=== PATIENT | female | born 1990 | race Caucasian/White ===

== ENCOUNTER 2018-03-28 11:55 | Emergency (ER) | payer OTHER ==
[2018-03-28 12:03] VITALS: BP 130/75; PULSE 102; TEMP 98.1; BMI 24.3
--- NOTE | 2018-03-28 12:38 | PDOC ---
History of Present Illness - General Chief Complaint: Abscess Boil Stated Complaint: ABCESS Time Seen by Provider: 03/28/18 12:02 - History of Present Illness Initial Comments: 27-year-old female presents for evaluation of an abscess on her left arm which is been there for 2 days. She has no other associated symptoms. 03/28/18 12:33 Past History - Past Medical History Allergies/Adverse Reactions: Allergies Allergy/AdvReac Type Severity Reaction Status Date / Time No Known Allergies Allergy Verified 03/28/18 12:00 Home Medications: Ambulatory Orders Cephalexin [Keflex] 500 mg PO QID #40 capsule 03/28/18 Sulfamethoxazole/Trimethoprim [Bactrim Ds -] 1 tab PO BID #14 tablet 03/28/18 COPD: No DVT: No Dementia: No - Immunization History Immunization Up to Date: Yes - Suicide/Smoking/Psychosocial Hx Smoking History: Never smoked Number of Cigarettes Smoked Daily: 10 Information on smoking cessation initiated: No Hx Alcohol Use: No Drug/Substance Use Hx: No Substance Use Type: None Review of Systems - Review of Systems Integumentary: Yes: See HPI, Lesions All Other Systems: Reviewed and Negative *Physical Exam - Vital Signs Last Vital Signs Temp Pulse Resp BP Pulse Ox 98.1 F 102 H 16 130/75 100 03/28/18 12:00 03/28/18 12:00 03/28/18 12:00 03/28/18 12:00 03/28/18 12:00 - Physical Exam Comments: There is about a half centimeter circumferential erythemic area with a cord out eschar without drainage no fluctuance normal surrounding skin color and temperature mild induration around the center of the lesion. Multiple track fleming up and down the arm. No gross sensorimotor deficits. 03/28/18 12:33 Medical Decision Making - Medical Decision Making 27-year-old female suspected IV drug user I will place her on Bactrim and Keflex and have her follow-up with general surgery for further evaluation and treatment options. 03/28/18 12:34 *DC/Admit/Observation/Transfer Diagnosis at time of Disposition: Cellulitis and abscess of upper arm and forearm - Discharge Dispostion Disposition: HOME Condition at time of disposition: Stable Decision to Admit order: No - Prescriptions Prescriptions: Cephalexin [Keflex] 500 mg PO QID #40 capsule Sulfamethoxazole/Trimethoprim [Bactrim Ds -] 1 tab PO BID #14 tablet - Referrals Referrals: ON STAFF,NOT [Primary Care Provider] - Keith Doherty MD [Staff Physician] - - Patient Instructions Printed Discharge Instructions: DI for Skin Abscess Additional Instructions: Return to the emergency room should symptoms worsen or go unresolved. Please take the antibiotics as directed. General surgery in 1-2 days for further evaluation and treatment options. Warm compresses 5-6 times a day over the area will also be helpful. He may take Tylenol and Motrin for pain as directed. - Post Discharge Activity
== END 2018-03-28 12:49 | disposition home or self-care (01) ==
LOC: JERFT 11:55
DX: L03.114 Cellulitis of left upper limb (principal)
CPT/HCPCS: 99281-25

== ENCOUNTER 2022-10-06 20:32 | Emergency (ER) | payer OTHER ==
[2022-10-06 20:39] VITALS: RESP 16; BMI 17.2
[2022-10-06] MEDS ORDERED: cloNIDine HCL 0.1 MG TABLET PO ONE (21:30)
[2022-10-06] MEDS ORDERED: ONDANSETRON *ODT* 4 MG TABLET SL ONE (21:38)
[2022-10-06] MEDS ORDERED: ONDANSETRON *ODT* 4 MG TABLET ONE (21:40)
[2022-10-06] MEDS ORDERED: cloNIDine HCL 0.1 MG TABLET ONE (21:40)
[2022-10-06 21:49] LABS: BASO % 0.3 % (0-2.0); EOS % 0.7 % (0-4.5); HEMATOCRIT 34.1 % (32.4-45.2); HEMOGLOBIN 11.2 GM/dL (10.7-15.3); LYMPH % 39.8 % (8-40); MCH 22.4 pg (25.7-33.7); MCHC 32.8 g/dl (32.0-36.0); MEAN CELL VOLUME 68.3 fl (80-96); MEAN PLT VOLUME 7.5 fl (7.5-11.1); MONO % 7.4 % (3.8-10.2); NEUT % 51.8 % (42.8-82.8); PLATELET COUNT 243 10^3/uL (134-434); RBC 4.99 M/mm3 (3.60-5.2); RDW 16.6 % (11.6-15.6); WHITE BLOOD COUNT 5.4 K/mm3 (4.0-10.0)
[2022-10-06 22:01] LABS: ALBUMIN 3.5 g/dl (3.4-5.0); BLOOD UREA NITROGEN 14.1 mg/dL (7-18); CALCIUM 9.4 mg/dL (8.5-10.1)
[2022-10-06 22:03] LABS: CREATININE 0.7 mg/dL (0.55-1.3)
[2022-10-06 22:05] LABS: BILIRUBIN,TOTAL 0.3 mg/dL (0.2-1); TOT PROT 8.1 g/dl (6.4-8.2)
[2022-10-06] MEDS ORDERED: CLINDAMYCIN HCL 300 MG CAPSULE PO ONE (23:53)
[2022-10-06] MEDS ORDERED: CLINDAMYCIN HCL 150 MG CAPSULE (FP) ONE (23:55)
[2022-10-06 23:56] VITALS: BP 113/69; PULSE 67; TEMP 98.2
== END 2022-10-07 00:10 | disposition short-term general hospital (02) ==
LOC: JER 20:32
DX: S60.511A Abrasion of right hand, initial encounter (principal); S60.512A Abrasion of left hand, initial encounter; F11.23 Opioid dependence with withdrawal; L02.91 Cutaneous abscess, unspecified; Y99.9 Unspecified external cause status
CPT/HCPCS: 36415; 73130-TC-LT-FY; 73130-TC-RT-FY; 80053; 84703; 85025; 93005; 93010; 99285-25; Q0162

== ENCOUNTER 2022-10-08 09:08 | Inpatient (IN) | payer OTHER ==
[2022-10-08 09:24] VITALS: BMI 18.4
[2022-10-08] MEDS ORDERED: P-EPHED 60MG/TRIPROLIDI 2.5MG TABLET PO PRN (09:46)
[2022-10-08] MEDS ORDERED: ACETAMINOPHEN 325 MG TABLET (FP) PO PRN (09:46)
[2022-10-08] MEDS ORDERED: guaiFENesin 600 MG TABLET.ER (FP) PO PRN (09:46)
[2022-10-08] MEDS ORDERED: IBUPROFEN 600 MG TABLET (FP) PO PRN (09:46)
[2022-10-08] MEDS ORDERED: BENZOCAINE/MENTHOL (CHLORASEPTIC ) LOZENGE MM PRN (09:46)
[2022-10-08] MEDS ORDERED: LOPERAMIDE HCL 2 MG CAPSULE PO PRN (09:46)
[2022-10-08] MEDS ORDERED: IBUPROFEN 400 MG TABLET (FP) PO PRN (09:46)
[2022-10-08] MEDS ORDERED: POLYETHYLENE GLYCOL (HEALTHYLAX) 3350 17 GM PACKET PO PRN (09:46)
[2022-10-08] MEDS ORDERED: NALOXONE HCL (KLOXXADO) 8 MG SPRAY NS PRN (09:46)
[2022-10-08] MEDS ORDERED: NALOXONE HCL 0.4 MG/ML VIAL IM PRN (09:46)
[2022-10-08] MEDS ORDERED: MAGNESIUM HYDROX 2400MG/30ML ORAL SUSPENSION 30 ML CUP PO PRN (09:46)
[2022-10-08] MEDS ORDERED: MAG HYDROX/AL HYDROX/SIMETH 30 ML UNIT-DOSE CUP PO PRN (09:46)
[2022-10-08] MEDS ORDERED: MELATONIN 5 MG TABLETS PO PRN (09:46)
[2022-10-08] MEDS ORDERED: BENZONATATE 200 MG CAPSULE PO PRN (09:46)
[2022-10-08] MEDS ORDERED: PRENATAL VITAMINS W/ FOLIC ACID TABLET (FP) PO ONE (10:55)
[2022-10-08] MEDS ORDERED: hydrOXYzine PAMOATE 25 MG CAPSULE (FP) PO ONE (10:55)
[2022-10-08] MEDS: hydrOXYzine PAMOATE 25 MG CAPSULE (FP) PO PRN ×2 (10:58→20:56)
[2022-10-08] MEDS: PRENATAL VITAMINS W/ FOLIC ACID TABLET (FP) PO SCH (10:59)
[2022-10-08] MEDS ORDERED: TUBERCULIN PPD 5 TU/0.1ML VIAL ID ONE (14:24)
[2022-10-08] MEDS: CLINDAMYCIN HCL 150 MG CAPSULE (FP) PO SCH ×2 (15:21→17:47)
[2022-10-08] MEDS: ESCITALOPRAM OXALATE 10 MG TABLET PO SCH (15:21)
[2022-10-08] MEDS: NICOTINE POLACRILEX 2 MG GUM BUC PRN ×2 (15:30→18:46)
[2022-10-08] MEDS ORDERED: SUVOREXANT 10 MG TABLET PO PRN (22:00)
[2022-10-08] MEDS ORDERED: THIAMINE HCL 100 MG TABLET (FP) PO SCH (22:00)
[2022-10-08] MEDS: METHOCARBAMOL 500 MG TABLET PO PRN (22:29)
[2022-10-09] MEDS ORDERED: TRIMETHOBENZAMIDE HCL 200MG/2ML INJ IM ONE (01:13)
[2022-10-09] MEDS: CLINDAMYCIN HCL 150 MG CAPSULE (FP) PO SCH ×4 (01:25→17:20)
[2022-10-09] MEDS ORDERED: methaDONE HCL 40 MG DISPERSABLE TABLET PO SCH (06:00)
[2022-10-09] MEDS: hydrOXYzine PAMOATE 25 MG CAPSULE (FP) PO PRN ×3 (06:15→17:20)
[2022-10-09] MEDS: METHOCARBAMOL 500 MG TABLET PO PRN ×2 (06:15→13:18)
[2022-10-09] MEDS: NICOTINE POLACRILEX 2 MG GUM BUC PRN ×3 (06:39→14:43)
[2022-10-09] MEDS: NICOTINE 10 MG CARTRIDGE (INHALER) IH PRN ×3 (07:05→16:49)
[2022-10-09] MEDS: PRENATAL VITAMINS W/ FOLIC ACID TABLET (FP) PO SCH (09:58)
[2022-10-09] MEDS: ESCITALOPRAM OXALATE 10 MG TABLET PO SCH (10:00)
[2022-10-09] MEDS ORDERED: NICOTINE 14 MG/24 HOURS TOPICAL PATCH TD SCH (10:00)
[2022-10-09 11:46] LABS: SYPHILIS W/ RPR CONF NON-REACTIVE (NONREACTIVE)
[2022-10-09] MEDS ORDERED: cloNIDine HCL 0.1 MG TABLET PO PRN (12:57)
[2022-10-09] MEDS ORDERED: SILVER SULFADIAZINE 1% TOP CREAM 400 GM JAR TP SCH (13:00)
[2022-10-09 18:33] VITALS: BP 117/74; PULSE 60; RESP 18; TEMP 98.5
[2022-10-09] MEDS ORDERED: traZODone HCL 50 MG TABLET (FP) PO PRN (22:00)
== END 2022-10-09 19:12 | disposition left against medical advice (07) | DRG 770 ==
LOC: YASAS 09:08 → Y5N 13:02
PROVIDERS: ADMIT Allergy & Immunology; ATTEND Family Medicine
PROC: HZ42ZZZ Group Counseling for Substance Abuse Treatment, Cognitive-Behavioral (ICD-10-PCS; principal; 2022-10-08)
DX: F11.20 Opioid dependence, uncomplicated (principal); F14.20 Cocaine dependence, uncomplicated; F17.210 Nicotine dependence, cigarettes, uncomplicated; F19.282 Other psychoactive substance dependence with psychoactive substance-induced sleep disorder; F19.280 Other psychoactive substance dependence with psychoactive substance-induced anxiety disorder; F32.9 Major depressive disorder, single episode, unspecified; M41.9 Scoliosis, unspecified; S61.402A Unspecified open wound of left hand, initial encounter; S61.401A Unspecified open wound of right hand, initial encounter; X58.XXXA Exposure to other specified factors, initial encounter; Y92.9 Unspecified place or not applicable
CPT/HCPCS: 36415; 81025; 86780; 86803; 87811; C9803-CS; U0003; U0005